=== PATIENT | female | born 1945 | race Caucasian/White ===

== ENCOUNTER → 2017-02-22 | Outpatient (CLI) | payer OTHER ==
[~2017-02-22] MED LIST: ATOR10 PO; Aspir 8181 MG PO; DILT120 PO; HYDACE5325 PO; IBUP600; METF500 PO; MULTI VITAMIN1 EACH; NAPR500 PO; OLME20 PO; OLME20-12. PO; TRIHYD253B PO; XARELTO20 MG PO
== END | disposition home or self-care (01) ==
LOC: LAB SHORT 07:28 → PLD 07:28
DX: D48.5 Neoplasm of uncertain behavior of skin (principal)
CPT/HCPCS: 88305

== ENCOUNTER → 2018-10-10 | Outpatient (CLI) | payer OTHER | END | disposition home or self-care (01) | LOC: LAB SHORT 08:40 → PLD 08:40 | DX: L82.1 Other seborrheic keratosis (principal) | CPT/HCPCS: 88305 ==

== ENCOUNTER → 2018-12-25 | Outpatient (CLI) | payer OTHER | END | disposition home or self-care (01) | LOC: LAB SHORT 08:00 → PLD 08:00 | DX: D48.5 Neoplasm of uncertain behavior of skin (principal) | CPT/HCPCS: 88305 ==

== ENCOUNTER → 2019-07-24 | Outpatient (CLI) | payer OTHER | LOC: LAB SHORT 07:25 → LAB EV 07:25 → EDSTATUS 08:58 | DX: R35.0 Frequency of micturition (principal) | CPT/HCPCS: 87086 ==